=== PATIENT | male | born 1980 | race Two or more races ===

== ENCOUNTER 2022-11-01 20:46 | Emergency (ER) | payer SELFPAY ==
[~2022-11-01] VITALS: Ht 175.3 cm; Wt 55.0 kg
[2022-11-01 20:49] VITALS: BP 133/89
== END 2022-11-02 00:57 | disposition left against medical advice (07) ==
LOC: EMS 20:48
DX: K08.89 Other specified disorders of teeth and supporting structures (principal); Z53.21 Procedure and treatment not carried out due to patient leaving prior to being seen by health care provider
CPT/HCPCS: 99281; Z7502

== ENCOUNTER 2022-11-21 09:34 | Emergency (ER) | payer MEDICAID ==
[~2022-11-21] VITALS: Ht 172.7 cm; Wt 68.2 kg
[2022-11-21] MEDS ORDERED: OxyCODONE HCL/ACETAMINOPHEN 5-325 MG TABLET PO ONE (12:30)
[2022-11-21 12:49] VITALS: TEMP 98.6
[2022-11-21] MEDS ORDERED: HYDR-4723 PO (12:50)
[2022-11-21] MEDS ORDERED: IBUP-1492 PO (12:50)
[2022-11-21 13:06] VITALS: BP 126/74; PULSE 98; RESP 18
== END 2022-11-21 13:30 | disposition home or self-care (01) ==
LOC: EMS 09:34
DX: S22.32XA Fracture of one rib, left side, initial encounter for closed fracture (principal); S80.212A Abrasion, left knee, initial encounter; S80.211A Abrasion, right knee, initial encounter; F17.210 Nicotine dependence, cigarettes, uncomplicated; F12.90 Cannabis use, unspecified, uncomplicated; Y04.8XXA Assault by other bodily force, initial encounter; Y93.89 Activity, other specified; Y92.89 Other specified places as the place of occurrence of the external cause; Y99.8 Other external cause status
CPT/HCPCS: 71047; 99283